=== PATIENT | female | born 1990 | race Caucasian/White ===

== ENCOUNTER 2019-05-04 17:05 | Emergency (ER) | payer OTHER, MEDICAID, SELFPAY ==
[2019-05-04 17:15] VITALS: BP 123/76; PULSE 91; RESP 22; TEMP 37.1; O2SAT 97; BMI 23.4
--- NOTE | 2019-05-04 17:32 | ED.URI ---
HPI - URI/Sore Throat <JESSICA Eugene - Last Filed: 05/04/19 21:31> General Chief Complaint: Upper Respiratory Symptoms Stated Complaint: vomiting,wheezing,coughing Time Seen by Provider: 05/04/19 17:12 Source: patient Mode of arrival: Ambulatory History of Present Illness HPI Narrative: 29-year-old female with a history of asthma, presents emergency department today complaining of wheezing, coughing, coughing so hard that she vomits, and a sore throat starting this morning. She states she usually just takes albuterol for her asthma but during the winter she feels like she has more frequent exacerbations. She reports she has to take Flovent about 5 years ago which helped but has not taken that since. She has an appointment with her primary care provider to discuss further asthma management on June 07. However, she woke up this morning and was using her albuterol inhaler every 2 hours but was not getting any relief. She denies any abdominal pain, dizziness, chest pain, fevers, chills, other concerns. Related Data Previous Rx's Medication Instructions Recorded albuterol sulfate [ProAir HFA] 2 puff INHALATION Q4-6H PRN #8 gram 05/04/19 fluticasone propion-salmeterol 1 puff INHALATION Q12H #60 each 05/04/19 [Advair Diskus] prednisone 50 mg PO DAILY 5 Days #5 tab 05/04/19 Allergies Allergy/AdvReac Type Severity Reaction Status Date / Time Sulfa (Sulfonamide Allergy Verified 05/04/19 17:18 Antibiotics) Review of Systems <JESSICA Eugene - Last Filed: 05/04/19 21:31> Review of Systems Narrative: REVIEW OF SYSTEMS: GENERAL: Denies fevers. HENT: No head trauma or hearing loss. EYES: No loss of vision, double vision, eye pain, irritation or discharge. CARDIOVASCULAR: No chest pain or syncope. RESPIRATORY: Reports cough and wheezing, see HPI. GASTROINTESTINAL: No nausea, vomiting, diarrhea, or constipation. MUSCULOSKELETAL: No weakness or injury. INTEGUMENTARY: No rash, lesions, or pruritus. NEURO: No memory loss, or confusion. Patient History <JESSICA Eugene - Last Filed: 05/04/19 21:31> Medical History Asthma (Acute) Social History Smoking Status: Current some day smoker Substance Use Type: marijuana Exam <JESSICA Eugene - Last Filed: 05/04/19 21:31> Narrative Exam Narrative: PHYSICAL EXAMINATION: GENERAL: Well groomed, alert, and cooperative. Answers questions promptly and appropriately. Vital signs noted. HENT: Normocephalic, atraumatic. Ear canals patent. TMs intact without mucus or erythema. Oropharynx without erythema. Tonsils are not present. EYES: Conjunctiva pink, sclera white, no periorbital swelling. No discharge. CHEST: Normal to inspection and without deformities. CARDIOVASCULAR: S1 and S2 sounds normal. Regular rate and rhythm, no murmurs, clicks, or bruits. RESPIRATORY: Normal respiratory rate, trachea midline, airway patent. No stridor, nasal flaring or accessory muscle use. Diffuse inspiratory and expiratory wheezes throughout all lung moody, this these completely resolved after administration of DuoNebs. MUSCULOSKELETAL: Normal gait and coordination. Equal tone and mass bilaterally. EXTREMITIES: Moves all extremities. SKIN: Warm, dry, soft, appropriate color for ethnicity. No lesions, rashes, or wounds. NEURO: Alert and Oriented X 3. Good coordination. No ataxia or cognitive issues. PSYCH: Appropriate affect and mood. Initial Vital Signs Initial Vital Signs: Vital Signs Temperature 98.7 F 05/04/19 17:15 Pulse Rate 91 H 05/04/19 17:15 Respiratory Rate 22 05/04/19 17:15 Blood Pressure 123/76 05/04/19 17:15 Pulse Oximetry 97 05/04/19 17:15 <Geno Abbasi DO - Last Filed: 05/05/19 07:53> Initial Vital Signs Initial Vital Signs: Vital Signs Temperature 98.7 F 05/04/19 17:15 Pulse Rate 91 H 05/04/19 17:15 Respiratory Rate 22 05/04/19 17:15 Blood Pressure 123/76 05/04/19 17:15 Pulse Oximetry 97 05/04/19 17:15 Course <JESSICA Eugene - Last Filed: 05/04/19 21:31> Course Course Narrative: Patient reports improved symptoms after administration of tuned duo nebs and prednisone. After re-evaluation of lung sounds, wheezes have completely resolved. POC strep test was negative, POC test was negative. Orders Ordered: Discontinued Medications Albuterol/Ipratropium (Duoneb) 3 ml INH NOW ONE Stop: 05/04/19 17:30 Last Admin: 05/04/19 17:33 Dose: 3 ml Documented by: GINO Albuterol/Ipratropium (Duoneb) 3 ml INH NOW ONE Stop: 05/04/19 17:45 Last Admin: 05/04/19 17:47 Dose: 3 ml Documented by: GINO Prednisone (Deltasone) 60 mg PO NOW ONE Stop: 05/04/19 17:37 Last Admin: 05/04/19 17:58 Dose: 60 mg Documented by: MEHDI Vital Signs Vital signs: Vital Signs - 8 hr 05/04/19 17:15 05/04/19 17:33 05/04/19 17:47 Temperature 98.7 F Pulse Rate 91 H 95 H 95 H Respiratory Rate 22 14 16 Blood Pressure 123/76 Blood Pressure [Right Arm] Pulse Oximetry 97 97 97 05/04/19 18:53 Temperature 98.8 F Pulse Rate 74 Respiratory Rate 18 Blood Pressure Blood Pressure [Right Arm] 104/57 L Pulse Oximetry 95 <Geno Abbasi DO - Last Filed: 05/05/19 07:53> Orders Ordered: Discontinued Medications Albuterol/Ipratropium (Duoneb) 3 ml INH NOW ONE Stop: 05/04/19 17:30 Last Admin: 05/04/19 17:33 Dose: 3 ml Documented by: GINO Albuterol/Ipratropium (Duoneb) 3 ml INH NOW ONE Stop: 05/04/19 17:45 Last Admin: 05/04/19 17:47 Dose: 3 ml Documented by: GINO Prednisone (Deltasone) 60 mg PO NOW ONE Stop: 05/04/19 17:37 Last Admin: 05/04/19 17:58 Dose: 60 mg Documented by: MEHDI Vital Signs Vital signs: Vital Signs - 8 hr 05/04/19 17:15 05/04/19 17:33 05/04/19 17:47 Temperature 98.7 F Pulse Rate 91 H 95 H 95 H Respiratory Rate 22 14 16 Blood Pressure 123/76 Blood Pressure [Right Arm] Pulse Oximetry 97 97 97 05/04/19 18:53 Temperature 98.8 F Pulse Rate 74 Respiratory Rate 18 Blood Pressure Blood Pressure [Right Arm] 104/57 L Pulse Oximetry 95 MDM - URI/Sore Throat <Nini BrooksJESSICA - Last Filed: 05/04/19 21:31> Medical Records Attestation: I reviewed the patient's medical records. Lab Data Attestation: I reviewed the patient's lab results. Labs: Point of Care Testing Test Results Negative Rapid Strep A Negative MDM Narrative Medical decision making narrative: Suspect patient's symptoms are most likely caused by an asthma exacerbation related to a viral illness. Patient's symptoms decreased after DuoNeb administration and prednisone. I suspect this is a viral illness as patient reports symptoms have been present for a day, she reports rhinorrhea, and sore throat. POC strep test was negative. Less likely pneumonia due to lack of systemic symptoms such as fever, tachycardia, and low oxygen saturation, as well as patient's symptoms improved after DuoNeb administration. Patient was given a prednisone taper, albuterol inhaler, and Advair to help control her asthma. She was encouraged to follow up with her primary care provider as scheduled in May for further discussion of adjustment of her asthma maintenance medication. Strict ED return precautions given for new or worsening symptoms. <Geno Abbasi DO - Last Filed: 05/05/19 07:53> Lab Data Labs: Point of Care Testing Test Results Negative Rapid Strep A Negative Discharge Plan Departure Patient Disposition: Home Clinical Impression: Upper respiratory infection Qualifiers: URI type: unspecified URI Qualified Code(s): J06.9 - Acute upper respiratory infection, unspecified Asthma exacerbation Qualifiers: Asthma severity: moderate Asthma persistence: persistent Qualified Code(s): J45.41 - Moderate persistent asthma with (acute) exacerbation Discharge Date/Time: 05/04/19 18:56 Instructions: DI for Asthma -- Adult, DI for Viral Upper Respiratory Infection -- Adult Activity Restrictions/Additional Instructions: Thank you for entrusting me with your care today. As discussed, your symptoms are most likely caused by an asthma exacerbation and upper respiratory tract infection is most likely caused by a virus. I prescribed you a regimen of prednisone to help with wheezing. Please use your albuterol inhaler every 4-6 hours as needed for shortness of breath or wheezing. You were also prescribed a daily inhaler to help with prevention of asthma exacerbations, please follow up with your primary care provider as planned in May for discussion of continued asthma maintenance. Return emergency department if you develop chest pain, wheezing that does not respond to your inhaler, high fevers that do not respond to Tylenol or ibuprofen, severe abdominal pain, uncontrollable vomiting, or other concerns. Prescriptions: New prednisone 50 mg tablet 50 mg PO DAILY 5 Days Qty: 5 RF: 0 fluticasone propion-salmeterol [Advair Diskus] 100-50 mcg/dose blister with device 1 puff INHALATION Q12H Qty: 60 RF: 1 albuterol sulfate [ProAir HFA] 90 mcg/actuation HFA aerosol inhaler 2 puff INHALATION Q4-6H PRN (Reason: shortness of breath or wheezing) Qty: 8 RF: 0
[2019-05-04 17:33] VITALS: PULSE 95; RESP 14; O2SAT 97
[2019-05-04] MEDS: ALBUTEROL/IPRATROPIUM 3 ML AMPUL INH ×2 (17:33→17:47)
[2019-05-04 17:47] VITALS: PULSE 95; RESP 16; O2SAT 97
[2019-05-04] MEDS: predniSONE 20 MG TABLET 60 MG PO (17:58)
[2019-05-04 18:53] VITALS: BP 104/57; PULSE 74; RESP 18; TEMP 37.1; O2SAT 95
== END 2019-05-04 18:56 | disposition home or self-care (01) ==
PROVIDERS: Emergency Provider Nurse Practitioner
DX: J06.9 Acute upper respiratory infection, unspecified (principal); J45.41 Moderate persistent asthma with (acute) exacerbation
CPT/HCPCS: 81025; 87880; 94150; 94640; 99282; 99284

== ENCOUNTER → 2019-06-25 15:02 | Outpatient (CLI) | payer OTHER, MEDICAID, SELFPAY ==
[2019-06-25 15:22] LABS: Add Manual Diff / Slide Review NO; Basophils Absolute Auto 0 /uL (0-100); Basophils Percent Auto 0.4 % (0-2); Eosinophils Absolute Auto 500 /uL (0-450); Eosinophils Percent Auto 4.8 % (2-4); Hematocrit 35.5 % (36-46); Hemoglobin 12.1 g/dL (12.0-16.0); Lymphocytes Absolute Auto 2500 /uL (1100-4500); Lymphocytes Percent Auto 25.5 % (25-40); Mean Corpuscular Hemoglobin 27.8 PG (26-34); Mean Corpuscular Volume 81.7 fL (80-100); Monocytes Absolute Auto 700 /uL (0-900); Monocytes Percent Auto 6.8 % (3-14); Neutrophils Absolute Auto 6100 /uL (1500-7000); Neutrophils Percent Auto 62.5 % (50-75); Platelet Count 299 X10^3/uL (150-400); Red Blood Cell Count 4.35 X10^6/uL (4.0-5.2); Red Cell Distribution Width 17.2 % (11.6-14.8); White Blood Cell Count 9.7 X10^3/uL (4.5-11.0)
[2019-06-25 15:35] LABS: Appearance Urine UA CLEAR; Bilirubin Urine UA NEGATIVE (NEGATIVE); Color Urine UA YELLOW; Glucose Urine UA NEGATIVE (Negative); Ketones Urine UA NEGATIVE (NEGATIVE); Leukocyte Esterase Urine UA NEGATIVE (NEGATIVE); Nitrite Urine UA NEGATIVE (Negative); Occult Blood Urine UA NEGATIVE (Negative); Protein Urine UA TRACE (Negative); Urobilinogen Urine UA 0.2 E.U./dL (0.2)
[2019-06-25 15:37] LABS: pH Urine UA 7.5 (4.5-8.0)
[2019-06-25 20:20] LABS: Hepatitis B Surface Antigen NEGATIVE s/c (NEGATIVE)
[2019-06-25 20:34] LABS: HIV 1 & 2 Ab/Ag 4th Gen Combo NEGATIVE (NEGATIVE); Hep C Virus Ab w/Reflex Quant NEGATIVE s/c (NEGATIVE)
[2019-06-25 20:49] LABS: Rubella Antibody IgG 0.8 IU/mL (>15)
[2019-06-27 20:31] LABS: RPR Screen Nonreactive (Nonreactive)
== END ==
PROVIDERS: PCP Family Medicine; Visit Provider Family Medicine
DX: Z34.81 Encounter for supervision of other normal pregnancy, first trimester (principal)
CPT/HCPCS: 36415; 80055; 81003; 86787; 86803; 86850; 86900; 86901; 87077; 87086; 87389

== ENCOUNTER → 2019-09-03 13:34 | Outpatient (CLI) | payer OTHER, MEDICAID, SELFPAY ==
--- NOTE | 2019-09-03 13:34 | DI.US.S_ITS ---
PROCEDURE: US OB >= 14 WEEKS FETUS INDICATIONS: ANATOMY SCAN OUTSIDE/PRIOR DATING DATA: Last menstrual period (LMP): 04/19/19. LMP-based estimated date of delivery (GENEVA): 01/24/20. First dating scan (date and location): 09/03/19. Estimated date of delivery (GENEVA) from first dating scan: 01/22/20. TECHNIQUE: Real-time scanning was performed of the fetus, with image documentation and biometric measurements. Endovaginal scanning: Not performed COMPARISON: None. FINDINGS: General: A single living intrauterine gestation is present. Presentation: Vertex. Placenta: Placental position is anterior, without previa. Amniotic fluid index: 20.9 cm, normal range is 5-24 cm. heart rate: 153 beats per minute. Maternal cervical canal: 4.2 cm long. Normal lower limit is 2.5 cm. biometrics: Biparietal diameter: 4.7 cm, 20 weeks 2 days Head circumference: 17.3 cm 19 weeks 6 days Abdominal circumference: 14.3 cm, 19 weeks 4 days Femur length: 3.1 cm, 19 weeks 4 days Estimated gestational age from initial scan: 19 weeks 4 days Composite gestational age from present scan: 19 weeks 6 days Estimated weight and percentile: 6 g, 51st percentile Measurement variability for biometric dating: +/- 7 days from 14 weeks to 15 weeks 6 days gestation, +/- 10 days from 16 weeks to 21 weeks 6 days gestation, +/- 2 weeks from 22 weeks to 27 weeks 6 days gestation, +/- 3 weeks for 28 weeks gestation or later. weight reference: 4500 g or EFW >90/95% is considered macrosomia or large for gestational age. EFW <10% is small for gestational age. EFW 5% or less is considered intra-uterine growth restriction. Anatomic survey: Neuro: Ventricles are non-dilated at less than 10 mm. Cisterna magna is normal at 3-11 mm. Cerebellum is normal in size and morphology. Nuchal skin fold: Normal at less than 306 mm between 14-21 weeks gestational age. Face: Nose and lips, facial profile are normal. Spine: No evidence for spina bifida. Heart: 4-chambered heart is present, with normal ventricular outflow tracts. Diaphragm: Diaphragm is intact. Stomach: Left-sided stomach is present. Kidneys: No hydronephrosis. Normal is less than 5 mm in 2nd trimester, less than 7 mm in 3rd trimester. Cord: 3-vessel cord has orthotopic insertion. Bladder: Normal in size. Extremities: All 4 extremities identified. IMPRESSION: Single living intrauterine fetus in vertex presentation Expected interval growth Normal anatomic survey Dictated by: Moise Junior M.D. on 09/03/2019 at 16:31 Approved by: Moise Junior M.D. on 09/03/2019 at 16:33
== END ==
PROVIDERS: PCP Family Medicine; Referring Provider Family Medicine; Visit Provider Family Medicine
DX: Z34.92 Encounter for supervision of normal pregnancy, unspecified, second trimester (principal); Z3A.19 19 weeks gestation of pregnancy
CPT/HCPCS: 76811

== ENCOUNTER → 2019-09-14 11:54 | Outpatient (CLI) | payer OTHER, MEDICAID, SELFPAY ==
[2019-09-14 11:59] LABS: Bacteria Urine None Seen; RBC Urine None Seen (0-5/HPF); WBC Urine None Seen (0-5/HPF)
[2019-09-14 12:47] LABS: Appearance Urine UA CLEAR; Bilirubin Urine UA NEGATIVE (NEGATIVE); Color Urine UA YELLOW; Glucose Urine UA NEGATIVE (Negative); Ketones Urine UA NEGATIVE (NEGATIVE); Leukocyte Esterase Urine UA NEGATIVE (NEGATIVE); Nitrite Urine UA NEGATIVE (Negative); Occult Blood Urine UA NEGATIVE (Negative); Protein Urine UA NEGATIVE (Negative); Specific Gravity Urine UA 1.015 (1.000-1.035); Urobilinogen Urine UA 0.2 E.U./dL (0.2)
[2019-09-14 13:11] LABS: Culture Indicated Urine Cult Not Indicated; Squamous Epithelial Cell Urine 5-10 /HPF (0-5/HPF)
[2019-09-14 13:12] LABS: pH Urine UA 7.5 (4.5-8.0)
== END ==
PROVIDERS: PCP Family Medicine; Referring Provider Family Medicine; Visit Provider Family Medicine
DX: Z34.90 Encounter for supervision of normal pregnancy, unspecified, unspecified trimester (principal); R39.15 Urgency of urination; R35.0 Frequency of micturition
CPT/HCPCS: 81001

== ENCOUNTER → 2019-11-08 14:54 | Outpatient (CLI) | payer OTHER, MEDICAID, SELFPAY ==
[2019-11-08 16:17] LABS: Add Manual Diff / Slide Review NO; Basophils Absolute Auto 100 /uL (0-100); Basophils Percent Auto 0.4 % (0-2); Eosinophils Absolute Auto 700 /uL (0-450); Eosinophils Percent Auto 5.9 % (2-4); Hematocrit 29.8 % (36-46); Lymphocytes Absolute Auto 2300 /uL (1100-4500); Lymphocytes Percent Auto 18.8 % (25-40); Mean Corpuscular HGB Conc 33.5 % (30-36); Mean Corpuscular Hemoglobin 27.7 PG (26-34); Mean Corpuscular Volume 82.7 fL (80-100); Monocytes Absolute Auto 1000 /uL (0-900); Monocytes Percent Auto 8.3 % (3-14); Neutrophils Absolute Auto 8100 /uL (1500-7000); Neutrophils Percent Auto 66.6 % (50-75); Platelet Count 325 X10^3/uL (150-400); Red Blood Cell Count 3.61 X10^6/uL (4.0-5.2); Red Cell Distribution Width 14.7 % (11.6-14.8); White Blood Cell Count 12.1 X10^3/uL (4.5-11.0)
[2019-11-08 17:26] LABS: GTT (PREG) 1 Hour PP 50gm Dose 108 mg/dL (76-139)
== END ==
PROVIDERS: PCP Family Medicine; Referring Provider Family Medicine; Visit Provider Family Medicine
DX: Z34.92 Encounter for supervision of normal pregnancy, unspecified, second trimester (principal)
CPT/HCPCS: 36415; 82950; 85025

== ENCOUNTER → 2019-12-10 15:10 | Outpatient (CLI) | payer OTHER, MEDICAID, SELFPAY ==
[2019-12-10 15:51] LABS: Appearance Urine UA CLEAR; Bilirubin Urine UA NEGATIVE (NEGATIVE); Color Urine UA YELLOW; Glucose Urine UA NEGATIVE (Negative); Ketones Urine UA NEGATIVE (NEGATIVE); Leukocyte Esterase Urine UA TRACE (NEGATIVE); Nitrite Urine UA NEGATIVE (Negative); Occult Blood Urine UA NEGATIVE (Negative); Protein Urine UA TRACE (Negative); Urobilinogen Urine UA 0.2 E.U./dL (0.2)
[2019-12-10 16:20] LABS: Bacteria Urine Many (>30); Culture Indicated Urine Cult Not Indicated; Mucus Urine 1+ (Negative); RBC Urine 1-5/HPF (0-5/HPF); Squamous Epithelial Cell Urine 10-30 /HPF (0-5/HPF); Transitional Epi Cells Urine 1-5/HPF (0-5/HPF); WBC Urine 5-10/HPF (0-5/HPF)
== END ==
PROVIDERS: PCP Family Medicine; Referring Provider Family Medicine; Visit Provider Family Medicine
DX: R30.0 Dysuria (principal)
CPT/HCPCS: 81003; 81015

== ENCOUNTER → 2019-12-30 14:24 | Outpatient (CLI) | payer OTHER, MEDICAID, SELFPAY ==
[2020-01-01 11:30] LABS: Strep Grp B PCR NEG for Grp B Strep
== END ==
PROVIDERS: PCP Family Medicine; Visit Provider Family Medicine
DX: Z34.90 Encounter for supervision of normal pregnancy, unspecified, unspecified trimester (principal)
CPT/HCPCS: 87653

== ENCOUNTER 2020-01-21 19:45 | Inpatient (IN) | payer OTHER, MEDICAID, SELFPAY ==
[2020-01-21] MEDS: LACTATED RINGERS 1,000 ML 100 ML IV ×2 (19:45→21:41)
[2020-01-21 20:11] LABS: Add Manual Diff / Slide Review NO; Basophils Absolute Auto 100 /uL (0-100); Basophils Percent Auto 0.8 % (0-2); Eosinophils Absolute Auto 100 /uL (0-450); Eosinophils Percent Auto 0.8 % (2-4); Hematocrit 32.8 % (36-46); Hemoglobin 10.9 g/dL (12.0-16.0); Lymphocytes Absolute Auto 2600 /uL (1100-4500); Lymphocytes Percent Auto 20.9 % (25-40); Mean Corpuscular HGB Conc 33.2 % (30-36); Mean Corpuscular Hemoglobin 27.1 PG (26-34); Mean Corpuscular Volume 81.5 fL (80-100); Monocytes Absolute Auto 900 /uL (0-900); Monocytes Percent Auto 7.6 % (3-14); Neutrophils Absolute Auto 8600 /uL (1500-7000); Neutrophils Percent Auto 69.9 % (50-75); Platelet Count 266 X10^3/uL (150-400); Red Blood Cell Count 4.03 X10^6/uL (4.0-5.2); Red Cell Distribution Width 17.5 % (11.6-14.8); White Blood Cell Count 12.3 X10^3/uL (4.5-11.0)
[2020-01-21 21:42] LABS: COVID19 -Nasal RAPID Negative (Negative)
[2020-01-22] MEDS: OXYTOCIN 10 UNIT/ML VIAL 20 UNIT (01:38)
--- NOTE | 2020-01-22 01:40 | PM.OBHP.1 ---
OB HPI Date/Time Date of admission: 01/21/20 Date Patient Seen: 01/22/20 Time Patient Seen: 00:50 History of Present Condition Chief complaint: EVAL OF LABOR : 5 Para: 1 Estimated Date of Delivery: 01/24/20 Estimated Gestational Age (weeks): 39w5d Narrative: Fouzia Torres is a 29 year old at 39w5d who presented in active labor. Pt with painful contractions starting around 5pm yesterday evening, increasing in frequency and intensity since then. Pt with LOF on the drive to the hospital. Minimal spotting, no mya vaginal bleeding. History of Present care: good care, initiated at week # (9) and pounds weight gain (25) Dating criteria: LMP confirmed by 1st trimester US Ultrasounds: normal 1st trimester US and normal mid trimester US Obstetrical complications: none Medical complications: other (asthma, no exacerbations) Preadmission Labs Blood type: A (+) positive -: Antibody screen: negative, GBS status: negative, HBsAG: negative, HIV: negative and RPR/VDLR: negative -: Rubella: not immune and Varicella: immune HCT: 32.8 HCAB: negative Urine: Lactobacillus 1 hr GTT: 108 Prior (ies) History: 06/2009, 03/2014 - elective abortions 11/2014 - spontaneous 05/25/2012 - at 40w4d, female, 7lb4.5oz Evaluation Evaluation Baseline heart rate: 150 Variability: Moderate (11-25) monitor accelerations: Present monitor decelerations: Absent Contraction Frequency (minutes): 3 Uterine Contraction Intensity: Strong/Firm Category of Tracing: I Cervical dilation (cm): 10 Cervical effacement (%): 100 station: +4 Laboratory results: Laboratory Tests 01/21/20 01/21/20 01/21/20 20:00 20:00 20:32 WBC 12.3 H RBC 4.03 Hgb 10.9 L Hct 32.8 L MCV 81.5 MCH 27.1 MCHC 33.2 RDW 17.5 H Plt Count 266 Neut % (Auto) 69.9 Lymph % (Auto) 20.9 L [place] % (Auto) 7.6 Eos % (Auto) 0.8 L Baso % (Auto) 0.8 Neut # (Auto) 8600 H Lymph # (Auto) 2600 [place] # (Auto) 900 Eos # (Auto) 100 Baso # (Auto) 100 COVID-19 PCR Negative Blood Type A Positive Antibody Screen Negative PFSH Medical History (Updated 07/21/19 @ 19:34 by Erika Blake) Asthma (Acute ~1993) Bipolar 1 disorder (Acute ~2009) Chlamydia (Inactive ~2011) Surgical History (Updated 07/21/19 @ 19:34 by Erika Blake) Anesthesia (Resolved) S/P dilatation and curettage (Acute ~2009) S/P removal of ovarian cyst (Acute ~2016) Family History (Updated 06/25/19 @ 12:43 by Kinjal Maradiaga RN) Mother Bipolar 1 disorder Cancer Grandmother Lung cancer Heavy smoker Brother Gastrointestinal complication Social History marital status: unmarried,living together Smoking Status: Never smoker Meds Home Medications and Allergies Home Medications Medication Instructions Recorded Confirmed Type albuterol sulfate [ProAir HFA] 2 puff INHALATION Q4-6H PRN #8 gram 05/04/19 01/14/20 Rx fluticasone propion-salmeterol 1 puff INHALATION Q12H #60 each 05/04/19 01/14/20 Rx [Advair Diskus] prenat.vits,loulou,[id number] 1 tab PO DAILY 01/14/20 01/14/20 History Allergies Allergy/AdvReac Type Severity Reaction Status Date / Time Sulfa (Sulfonamide Allergy Verified 01/14/20 12:52 Antibiotics) Exam Narrative Exam Narrative: Gen: NAD, laying comfortably in bed, appears well CV: RRR, no murmurs Resp: clear to auscultation bilaterally Abd: soft, nontender, nondistended, gravid Ext: trace edema Objective Labs Result Diagrams: 01/21/20 20:00 Labs: Laboratory Results - last 24 hr 01/21/20 01/21/20 01/21/20 20:00 20:00 20:32 WBC 12.3 H RBC 4.03 Hgb 10.9 L Hct 32.8 L MCV 81.5 MCH 27.1 MCHC 33.2 RDW 17.5 H Plt Count 266 Neut % (Auto) 69.9 Lymph % (Auto) 20.9 L [place] % (Auto) 7.6 Eos % (Auto) 0.8 L Baso % (Auto) 0.8 Neut # (Auto) 8600 H Lymph # (Auto) 2600 [place] # (Auto) 900 Eos # (Auto) 100 Baso # (Auto) 100 COVID-19 PCR Negative Blood Type A Positive Antibody Screen Negative Assessment and Plan Assessment and Plan Assessment and Plan narrative: 29yo at 39w5d presented in active labor. SROM in car on the way to the hospital with clear fluid present. No complications with . Rh positive, GBS negative. - Expectant management, anticipate - Epidural for pain control in place - GBS negative, no prophylaxis indicated - FHT reassuring - Hx of asthma - no hemabate
--- NOTE | 2020-01-22 01:41 | PM.OBPRVD ---
Labor & Delivery Delivery date: 01/22/20 Intrapartal events: None Cervical ripening method: none Induction method: none Delivery monitor: external FHT Estimated blood loss (mL): 100 Anesthesia type: Epidural Complications: None Narrative: PROCEDURE: at 39w4d presented in active labor with SROM and was admitted to Labor and Delivery. The patient progressed through the 1st stage over 7 hours. Pain was controlled with an epidural. The patient progressed through the 2nd stage over 30 minutes and delivered a viable male infant with APGARs 8/9 at 1:12 via without complications. The cord was cut and clamped after it stopped pulsing. The perineum and vagina were inspected with 2nd degree laceration repaired with 3-O Chromic. PREPROCEDURE DIAGNOSIS: Intrauterine at 39w4d GBS negative RH positive POSTPROCEDURE DIAGNOSIS: Intrauterine at 39w5d, delivered Same as preprocedure LABOR AUGMENTATION: None ROM APPEARANCE: Clear BABY A DELIVERY TIME: 1:12 BABY A OUTCOME: Viable BABY A SEX: Male BABY A WEIGHT: 6lb10.6oz BABY A PRESENTATION: Vertex BABY A POSITION: OA BABY A NUCHAL CORD: x1, reduced at perineum BABY A # CORD VESSELS: 3 PLACENTA DELIVERY TIME: 1:26 PLACENTAL DELIVERY TYPE: Spontaneous PLACENTA APPEARANCE: Intact Baby 1: gender: Male score (1 min): 8 score (5 min): 9 Plan for aftercare: Normal care
[2020-01-22] MEDS: IBUPROFEN 600 MG TABLET PO ×3 (04:31→17:40)
[2020-01-22] MEDS: LANOLIN OINT 7 GM 1 APPLIC TOP (04:32)
[2020-01-22] MEDS: DERMOPLAST SPRAY 20% 60 ML 1 SPRAY TOP (04:32)
[2020-01-22] MEDS: DOCUSATE 100 MG CAPSULE PO (09:30)
[2020-01-22] MEDS: PRENATAL VIT,CALC/IRON/FOLIC 1 TABLET 1 TAB PO (09:30)
[2020-01-22] MEDS: FERROUS GLUCONATE 324 MG TABLET PO (09:30)
[2020-01-23] MEDS: IBUPROFEN 600 MG TABLET PO ×2 (00:11→07:46)
[2020-01-23] MEDS: DOCUSATE 100 MG CAPSULE PO (07:45)
[2020-01-23] MEDS: FERROUS GLUCONATE 324 MG TABLET PO (07:46)
[2020-01-23] MEDS: PRENATAL VIT,CALC/IRON/FOLIC 1 TABLET 1 TAB PO (07:46)
--- NOTE | 2020-01-23 08:05 | PM.OBDS.1 ---
Discharge Providers Provider Date of admission: 01/21/20 19:45 Discharge Date: 01/23/20 Primary care physician: Amanda Ware MD Consults: 01/23/20 01:41 Consult to [employer] Routine Comment: Discharge provider: DO Richi Matthews Hospital Course Date Patient Seen: 01/23/20 Time Patient Seen: 07:40 Procedures: Spontaneous vaginal delivery Epidural analgesia Hospital Course: Patient is a 29 year [id number] after uncomplicated spontaneous vaginal delivery at 39 weeks and 5 days. Patient presented to the hospital in active labor and received an epidural with adequate pain control. She went on to deliver a vigorous male infant. A second-degree vaginal laceration was repaired in the usual fashion. There were no issues . Patient was ambulating, eating and passing flatus. Bleeding was light to moderate and pain well controlled with ibuprofen. Breast-feeding was going well. 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 He will follow-[facility] at [facility] next week. Advised patient to call for fevers, severe pain or bleeding through more than a pad an hour. Follow-up with Dr. Ware in 6 weeks. Peripartum Data Delivery Method: Natural Vaginal complications: none 1: Gender: Male Disposition of : home Discharge Diagnosis (1) Spontaneous vaginal delivery: Status: Acute (2) 39 weeks gestation of : Status: Acute Status at Discharge Functional status at discharge: independent ambulation Overall status at discharge: patient is progressing back to baseline Time Spent with Patient Time attestation: Total time spent providing and/or coordinating discharge services: Time spent: Less than 30 minutes Objective Labs Result Diagrams: 01/21/20 20:00 Exam Vital Signs (past 8 hours): Temperature 98.3? blood pressure 107/71 heart rate 74 respirations 16 Narrative Exam Narrative: General: Awake and alert, no acute distress. HEENT: NCAT, EOMI, moist oral mucosa CV: Regular rate and rhythm, no murmurs, rubs or gallops Lungs: CTAB, no wheezes, rales, or rhonchi Abdomen: Soft, nontender; bowel tones active; uterus firm 1 cm below umbilicus Extremities: Warm, no edema Discharge Plan Discharge Plan Patient Disposition: Home Discharge orders & Medications Prescriptions: New docusate sodium [DOK] 100 mg Capsule 100 mg PO DAILY Qty: 30 RF: 0 ibuprofen 600 mg Tablet 600 mg PO Q6HR PRN (Reason: Pain, Mild (1-3)) Qty: 30 RF: 0 Continued prenat.vits,loulou,spn-[id number]-[id number] Tablet 1 tab PO DAILY RF: 0 fluticasone propion-salmeterol [Advair Diskus] 100-50 mcg/dose blister with device 1 puff INHALATION Q12H Qty: 60 RF: 1 albuterol sulfate [ProAir HFA] 90 mcg/actuation HFA aerosol inhaler 2 puff INHALATION Q4-6H PRN (Reason: shortness of breath or wheezing) Qty: 8 RF: 0 Follow up/Referrals: Amanda Ware MD [Primary Care Provider] - Visit Report/Discharge Packet Visit Report Forms: Patient Portal/API, Stroke Signs & Symptoms Discharge Data Primary Care Provider: Amanda Ware
[2020-01-23 08:17] VITALS: BP 107/71; PULSE 74; RESP 18; TEMP 36.4
== END 2020-01-23 11:44 | disposition home or self-care (01) | DRG 560 ==
PROVIDERS: Admitting Provider Family Medicine; PCP Family Medicine; Referring Provider Family Medicine; Visit Provider Family Medicine
DX: O70.1 Second degree perineal laceration during delivery (principal); Z3A.39 39 weeks gestation of pregnancy; Z37.0 Single live birth
CPT/HCPCS: 01967; 59050; 59409; 85025; 86850; 86900; 86901; 87635; G0379; J2590

== ENCOUNTER → 2021-01-11 15:56 | Outpatient (CLI) | payer OTHER, MEDICAID, SELFPAY | PROVIDERS: PCP Family Medicine; Referring Provider Student in an Organized Health Care Education/Training Program; Visit Provider Student in an Organized Health Care Education/Training Program | DX: N89.8 Other specified noninflammatory disorders of vagina (principal) | CPT/HCPCS: 87210 ==

== ENCOUNTER → 2021-09-08 10:02 | Outpatient (CLI) | payer OTHER, MEDICAID, SELFPAY | PROVIDERS: PCP Family Medicine; Visit Provider Family Medicine | DX: R30.0 Dysuria (principal) | CPT/HCPCS: 81025; 87086 ==